=== PATIENT | female | born 1945 | race Caucasian/White ===

== ENCOUNTER 2016-11-26 09:33 | Emergency (ER) | payer OTHER ==
[~2016-11-26] VITALS: Ht 170.2 cm; Wt 77.1 kg
--- NOTE | 2016-11-26 10:47 | ED GENERAL ADULT ---
History of Present Illness General Chief Complaint: Headache Stated Complaint: ? MIGRANE/PAIN ON TOP OF HEAD Source: patient Exam Limitations: no limitations Vital Signs & Intake/Output Vital Signs & Intake/Output Vital Signs Date Time Temp Pulse Resp B/P Pulse O2 O2 Flow FiO2 Ox Delivery Rate 11/26 1135 142/82 11/26 1046 Room Air Room Air 11/26 0948 97.7 83 20 182/88 98 Room Air Allergies Uncoded Allergies: ERHTROMYCIN (Intermediate, HIVES THROAT SWELLING 11/26/16) Triage Note: PT PRESENTS TO ER C/O OF PAIN ON THE TOP OF HEAD. PT STATES SHE USE TO HAVE MIGRAINES YEARS AGO AND HAS NOT HAD ON IN 15 YEARS. PT STATES LAST NIGHT SHE STARTED WITH A STRONG HEADACHE. PT STATES TODAY PAIN IS DULL BUT STILL BOTHERING HER. PT ALSO STATES BRIGHT LIGHTS BOTHER HER. PT DENIES BLURRED VISION. PT DENIES NAUSEA Triage Nurses Notes Reviewed? yes HPI: This is a 71-year-old female with past medical history significant for migraine 15 years ago came to the emergency department with chief complaint of headache since last night. According to her, headache started all of a sudden last night when she was watching TV. She couldn't able to tolerate bright light. She denied any visual changes, nausea, vomiting, dizziness or lightheadedness, syncopal episodes. She denied any focal neurological deficits. She denied weakness, sensory changes, vision changes, gait changes. She couldn't sleep at all last night because of severe stabbing headache. Headaches started all of a sudden, on the top of her head, 10 out of 10, stabbing pain, nonradiating. Not relieved with Excedrin. Of note her blood pressures were high in the emergency department 180/80. (JULIANN TEIXEIRA MD) Past History Travel History Traveled to [place] past 21 day No Medical History Any Pertinent Medical History? see below for history Neurological: migraine Cardiovascular: hypertension Gastrointestinal: GERD Tetanus Vaccine: Surgical History Surgical History: none Psychosocial History What is your primary language Slovak Tobacco Use: Never used Family History Hx Contributory? Yes (JULIANN TEIXEIRA MD) Review of Systems Review of Systems Constitutional: Denies: chills, diaphoresis, fever, weakness. EENTM: Denies: blurred vision, double vision, visual changes. Respiratory: Denies: cough, short of breath, sputum production. Cardiovascular: Denies: chest pain, edema, palpitations. GI: Denies: abdominal pain, nausea, vomiting. Genitourinary: Denies: frequency, urgency. Musculoskeletal: Denies: back pain, joint pain. Skin: Denies: rash. Neurological/Psychological: Reports: headache. Denies: anxiety, confusion, depressed, dementia, emotional problems, numbness, paresthesia, tingling, tremors, tonic-clonic seizures, weakness. (JULIANN TEIXEIRA MD) Physical Exam Physical Exam General Appearance: well developed/nourished, no apparent distress, alert, awake , comfortable Head: atraumatic, normal appearance Eyes: Bilateral: EOMI. Neck: normal inspection, supple Respiratory: normal breath sounds Cardiovascular: regular rate/rhythm Gastrointestinal: normal bowel sounds, soft, non-tender Extremities: no edema Neurologic/Psych: no motor/sensory deficits, awake, alert, oriented x 3, normal gait, normal mood/affect Skin: intact Core Measures ACS in differential dx? No CVA/TIA Diagnosis: No Severe Sepsis Present: No Septic Shock Present: No (JULIANN TEIXEIRA MD) Progress Differential Diagnoses I considered the following diagnoses in my evaluation of the patient: migraine headaches, stroke, intracranial bleed Plan of Care: Orders Procedure Date/time Status CT HEAD WO IV CONTRAST 11/26 1022 Active Initial ED EKG: none (JULIANN TEIXEIRA MD) Diagnostic Imaging: Viewed by Me: CT Scan. Discussed w/RAD: CT Scan. (NANDA KRISHNA,AHSAN) Departure Departure Condition: Stable Referrals: MARIA T KING MD (PCP/Family) Departure Forms: Customer Survey General Discharge Information (JULIANN TEIXEIRA MD) Departure Time of Disposition: 1136 Disposition: HOME OR SELF CARE Clinical Impression Primary Impression: Migraine Secondary Impressions: Hypertensive urgency Additional Instructions: Continue your antihypertensive medications. Follow-up with her primary care doctor in the office. Take Tylenol as needed for pain. Return to the ER for any changing or worsening symptoms. PA/SEPARATOR OPERATOR Co-Sign Statement Statement: ED Attending supervision documentation- [X] I saw and evaluated the patient. I have also reviewed all the pertinent lab results and diagnostic results. I agree with the findings and the plan of care as documented in the PA's/SEPARATOR OPERATOR's documentation. [X] I have reviewed the ED Record and agree with the PA's/SEPARATOR OPERATOR's documentation. [] Additions or exceptions (if any) to the PAs/SEPARATOR OPERATOR's note and plan are summarized below: [] (NANDA KRISHNA,AHSAN) Critical Care Note Critical Care Note Critical Care Time: 30-74 min (JULIANN TEIXEIRA MD) ED Attending Observation Initial Observation Note: I have seen and personally examined KWESI PRIETO on 11/26/16 at 1044. I agree with the current emergency department documentation. The disposition (admission or discharge) is uncertain at this time, she needs a period of observation for the following reason(s): The ED Nurse caring for this patient has been personally informed as to what the patient is being observed for. (JULIANN TEIXEIRA MD)
--- NOTE | 2016-11-26 11:21 | CT SCAN REPORT ---
EXAMINATION: CT HEAD WITHOUT CONTRAST CLINICAL INFORMATION: 71-year-old woman with severe migraine headache. COMPARISON: None. TECHNIQUE: Contiguous axial imaging was performed from the skull base to vertex without intravenous administration of contrast. DLP: 672 mGy-cm. FINDINGS: There is no evidence of acute intracranial hemorrhage or territorial infarction. No abnormal mass effect or midline shift is seen. Hightower to white matter differentiation is well preserved. No extra-axial fluid collections are identified. The ventricles are normal in size. There is no abnormal attenuation within the brain parenchyma. The osseous structures and soft tissues are normal. The mastoid air cells and visualized portions of the paranasal sinuses are well aerated. IMPRESSION: No acute intracranial pathology.
[2016-11-26 11:35] VITALS: BP 142/82
== END 2016-11-26 11:56 ==
LOC: ERH 09:33
DX: G43.909 Migraine, unspecified, not intractable, without status migrainosus (principal); I16.0 Hypertensive urgency
CPT/HCPCS: 96374